=== PATIENT | female | born 1960 | race Caucasian/White ===

== ENCOUNTER 2024-05-23 11:08 | Outpatient (CLI) | payer OTHER ==
--- NOTE | 2024-05-30 11:35 | Mammography Report ---
BILATERAL DIGITAL SCREENING MAMMOGRAM 3D/2D: 05/23/2024 CLINICAL: Routine screening. Family history of breast cancer. Additional films were requested but not obtained. There are scattered areas of fibroglandular density in both breasts (category b / 25%-50% glandular t issue). No significant masses, calcifications, or other findings are seen in either breast. IMPRESSION: NEGATIVE There is no mammographic evidence of malignancy. A 1 year screening mammogram is recommended. Based on Tyrer-Cuzick model (a risk assessment model), the patient's lifetime risk is 21.0% and her 1 0 year risk is 9.4%. If a patient has an elevated risk, a more comprehensive evaluation should be con sidered and/or a referral to a genetic counselor. The [place] [employer], [employer], and NCCN Guidelines advise the consideration of Breast MRI as an adjunct to screening mammog laura in patients whose "Lifetime risk to develop breast cancer" is 20% or higher. This exam was interpreted at Station ID: [id number]. NOTE: For mammograms, a report in lay terms will be sent to the patient. Approximately 15% of breast malignancies will not be visualized mammographically. In the management of a palpable breast mass, a negative mammogram must not discourage biopsy of a clinically suspicious lesion. Electronically Signed By: Philippe [email or web address]:05/29/2024 11:47:29 letter sent: No_Letter ACR BI-RADS Category 1: Negative 3341F PARENCHYMAL PATTERN: (A) - The breast(s) demonstrate(s) scattered fibroglandular densities. BI-RADS CATEGORY: (1) - 1 RECOMMENDATION: (ANNUAL) - Recommend routine annual screening mammography. [id number] 1 year screening LATERALITY: (B)
== END 2024-05-23 11:09 | disposition home or self-care (01) ==
LOC: DI 11:08
DX: Z12.31 Encounter for screening mammogram for malignant neoplasm of breast (principal); R92.323 Mammographic fibroglandular density, bilateral breasts; Z80.3 Family history of malignant neoplasm of breast